=== PATIENT | female | born 1950 | race Two or more races ===

== ENCOUNTER 2025-01-20 00:47 | Emergency (ER) | payer BC ==
[~2025-01-20] VITALS: Ht 157.5 cm; Wt 54.4 kg
[2025-01-20 00:52] VITALS: BP 172/84; TEMP 98; O2SAT 98
== END 2025-01-20 01:57 | disposition left against medical advice (07) ==
LOC: ER 00:54 → EDBD 00:54 → ER 01:57
DX: H57.89 Other specified disorders of eye and adnexa (principal); Z53.21 Procedure and treatment not carried out due to patient leaving prior to being seen by health care provider

== ENCOUNTER 2025-01-20 02:22 | Emergency (ER) | payer BC | END 2025-01-20 04:05 | disposition left against medical advice (07) | LOC: ER 02:25 | DX: H57.89 Other specified disorders of eye and adnexa (principal); Z53.21 Procedure and treatment not carried out due to patient leaving prior to being seen by health care provider ==